=== PATIENT | female | born 1995 | race Caucasian/White ===

== ENCOUNTER 2017-11-18 09:20 | Emergency (ER) | payer OTHER ==
[~2017-11-18] VITALS: Ht 165.1 cm; Wt 113.4 kg
[~2017-11-18 09:20] MED LIST: AMOCLA875 PO; AMOX500 PO; ANTOXYBENA RIGHTEAR; ATOM25; Augmentin 875-1 EACH PO; CYCL10 PO; DIPATR PO; DIPH50 PO; HYDACE5325 PO; IBUP600 PO; IBUP800 PO; NAPR250 PO; NAPR550 PO; Nasonex17 GM; ONDA4 PO; OXYACE5T PO; PHENA100 PO; PRED20 PO; PROM25 PO; Percocet 5-3251 EACH PO; RXCYCL10 PO; RXHYD5325 PO; SULTRIDS PO; Sudogest30 MG PO
== END 2017-11-18 10:07 | disposition home or self-care (01) ==
LOC: ER 09:20
DX: S61.210A Laceration without foreign body of right index finger without damage to nail, initial encounter (principal); Z23 Encounter for immunization; W27.0XXA Contact with workbench tool, initial encounter
CPT/HCPCS: 12001; 90471; 90714; 99283

== ENCOUNTER 2020-07-05 18:49 | Emergency (ER) | payer OTHER ==
[~2020-07-05] VITALS: Ht 165.1 cm; Wt 122.5 kg
== END 2020-07-05 19:02 | disposition left against medical advice (07) ==
LOC: ER 18:49
DX: R22.1 Localized swelling, mass and lump, neck (principal); Z53.21 Procedure and treatment not carried out due to patient leaving prior to being seen by health care provider
CPT/HCPCS: 99282

== ENCOUNTER 2020-12-20 14:53 | Emergency (ER) | payer OTHER ==
[~2020-12-20] VITALS: Ht 165.1 cm; Wt 127.0 kg
[~2020-12-20 14:53] MED LIST changes: +IBU800 MG PO
[2020-12-20] MEDS ORDERED: CYCL10 PO (16:12)
[2020-12-20] MEDS ORDERED: CYMBALTA20 M1 (16:13)
[2020-12-20] MEDS ORDERED: ACETAMINOPHEN500 MG PO (17:49)
== END 2020-12-20 18:33 | disposition home or self-care (01) ==
LOC: ER 14:53
DX: S20.211A Contusion of right front wall of thorax, initial encounter (principal); M54.2 Cervicalgia; V47.5XXA Car driver injured in collision with fixed or stationary object in traffic accident, initial encounter
CPT/HCPCS: 36415; 71046; 72100; 72125; 96374; 96375-59; 99284-25; J1170; J2405; L0160

== ENCOUNTER → 2022-07-16 | Outpatient (CLI) | payer OTHER ==
[~2022-07-16] MED LIST changes: +ACETAMINOPHEN500 MG PO; +CYMBALTA20 M1; +Doxycycline Mo100 M1 PO; +PRENATAL GUMMIES PO
[2022-07-16 11:51] LABS: Source, Urine Clean Catch
[2022-07-16 13:23] LABS: Bacteria Many /hpf; Squamous Epithelial Cells Many /hpf (Few)
[2022-07-16 13:25] LABS: Transitional Epithelial Cells Few /hpf (0-Rare)
[2022-07-16 13:27] LABS: U Amphetamine Screen Not Detected; U Barbituate Screen Not Detected; U Benzodiazapine Screen Not Detected; U Buprenorphine Screen Not Detected; U Cannabinoids Screen Not Detected; U Cocaine Screen Not Detected; U Methadone Screen Not Detected; U Methamphetamine Screen Not Detected; U Opiates Screen Not Detected; U Oxycodone Screen Not Detected; U Phencyclidine Screen Not Detected; U Propoxyphene Screen Not Detected
== END ==
LOC: LAB SHORT 11:49 → LAB 11:49
PROVIDERS: Family Medicine
DX: Z34.01 Encounter for supervision of normal first pregnancy, first trimester (principal)
CPT/HCPCS: 81015; 87086

== ENCOUNTER 2022-08-02 08:09 | Day surgery (SDC) | payer OTHER ==
[~2022-08-02] VITALS: Ht 167.6 cm; Wt 140.5 kg
[2022-08-02] MEDS ORDERED: IBU600 M1 PO (08:27)
--- NOTE | 2022-08-02 08:59 | NUR ---
History, Chart, Medications and Allergies reviewed before start of procedure. Patient confirms NPO status and agrees with scheduled surgery. Patient's mom, Ilda, at bedside in pre-op. Patient States Post-Procedure ride home has been arranged with mom.
[2022-08-02 09:17] LABS: BASOPHILS ABSOLUTE AUTO 0.04 K/mm3 (0.00-0.23); BASOPHILS PERCENT AUTO 0 % (0-2); EOSINOPHILS ABSOLUTE AUTO 0.14 K/mm3 (0.00-0.68); EOSINOPHILS PERCENT AUTO 1 % (0-6); Hematocrit 34.1 % (33.0-51.0); IMMATURE GRAN ABSOLUTE AUTO 0.05 K/mm3 (0.00-0.10); IMMATURE GRAN PERCENT AUTO 0 % (0-1); LYMPHOCYTES ABSOLUTE AUTO 4.03 K/mm3 (0.84-5.20); LYMPHOCYTES PERCENT AUTO 32 % (21-46); MONOCYTES ABSOLUTE AUTO 0.87 K/mm3 (0.16-1.47); MONOCYTES PERCENT AUTO 7 % (4-13); Mean Corpuscular HGB 25.3 pg (26.0-34.0); Mean Corpuscular HGB Conc 32.3 g/dL (31.5-36.5); Mean Corpuscular Volume 78 fL (80-100); Mean Platelet Volume 9.3 fL (9.1-12.4); NEUTROPHILS ABSOLUTE AUTO 7.61 K/mm3 (1.96-9.15); NEUTROPHILS PERCENT AUTO 60 % (41-73); Platelet Count 448 K/mm3 (150-400); RDW Coefficient Variation 13.9 % (11.7-14.2); RDW Standard Deviation 39.3 fL (35.1-46.3); Red Blood Cell Count 4.35 M/mm3 (3.80-5.20); White Blood Cell Count 12.74 K/mm3 (4.00-11.30)
--- NOTE | 2022-08-02 11:45 | NUR ---
Discharge instructions reviewed with patient. Patient verbalizes understanding. Copy given to patient to take home. Discharged via wheelchair to private car for ride home. MINIMAL BLOOD TO RISA-PAD. PT VOIDED SUCCESSFULLY UPON DISCNARGE. NO ACUTE CONCERNS. VSS, NO C/O PAIN OR NAUSEA AT THIS TIME. PT ABLE TO DRESS SELF AND AMBULATE TO W/C.
--- NOTE | 2022-08-06 10:12 | NUR ---
08/06/22 1012 Fern Resendiz VERIFICATIONS: EDIT CHART.
== END 2022-08-02 11:54 | disposition home or self-care (01) ==
LOC: ORSCMMR 08:09 → ORD 09:45 → ORSCMMR 09:45
PROVIDERS: Obstetrics & Gynecology
PROC: 10D17ZZ Extraction of Products of Conception, Retained, Via Natural or Artificial Opening (ICD-10-PCS; principal; 2022-08-02 09:45)
DX: O02.1 Missed abortion (principal); F41.8 Other specified anxiety disorders; F43.10 Post-traumatic stress disorder, unspecified; E66.01 Morbid (severe) obesity due to excess calories; Z68.43 Body mass index [BMI] 50.0-59.9, adult; E28.2 Polycystic ovarian syndrome; Z79.899 Other long term (current) drug therapy
CPT/HCPCS: 85025; 86850; 86900; 86901; 88305; A9270; J1100; J1885; J2250; J2405; J2704; J2765; J3010; J7120

== ENCOUNTER 2024-08-28 12:33 | Emergency (ER) | payer OTHER ==
[~2024-08-28] VITALS: Ht 167.6 cm; Wt 131.5 kg
[~2024-08-28 12:33] MED LIST changes: +IBU600 M1 PO; +METF500 PO
[2024-08-28 12:43] VITALS: BP 107/63
[2024-08-28] MEDS ORDERED: ONDA4ODT MM (13:39)
== END 2024-08-28 13:46 | disposition home or self-care (01) ==
LOC: ER 12:33
DX: R11.2 Nausea with vomiting, unspecified (principal); Z79.84 Long term (current) use of oral hypoglycemic drugs
CPT/HCPCS: 99284